=== PATIENT | female | born 1985 | race Hispanic/Latino ===

== ENCOUNTER 2017-07-11 02:23 | Emergency (ER) | payer MEDICAID, SELFPAY ==
[2017-07-11 04:13] LABS: #Lymphocytes 1.2 thou/uL (1.20-3.40); #Monocytes 0.7 thou/uL (0.11-0.59); #Neutrophils 3.6 thou/uL (1.40-6.50); %Basophils 0.2 % (0.0-1.0); %Eosinophils 0.8 % (0.0-10.0); %Lymphocytes 21.2 % (21.0-51.0); %Monocytes 12.9 % (0.0-10.0); Hematocrit 42.1 % (36.0-47.0); Red Blood Cell (RBC) Count 4.56 mill/uL (4.20-5.40); White Blood Cell (WBC) Count 5.6 thou/uL (4.8-10.8)
[2017-07-11 04:30] LABS: ALT (SGPT) 12 U/L (8-55); AST (SGOT) 19 U/L (5-34); Alkaline Phosphatase 58 U/L (40-150); Anion Gap 13 mmol/L (10-20); BUN (Urea Nitrogen) 12 mg/dL (7.0-18.7); Bilirubin, Total 0.8 mg/dL (0.2-1.2); Calc. Creatinine Clearance 0 mL/min (70-130); Calcium 9.1 mg/dL (7.8-10.44); Carbon Dioxide 24 mmol/L (22-29); Chloride 104 mmol/L (98-107); Estimated GFR-MDRD 86; Globulin 3.5 g/dL (2.4-3.5); Protein, Total 7.7 g/dL (6.0-8.3)
[2017-07-11 06:05] LABS: Bilirubin Negative (Negative); Blood, Urine Trace (Negative); Glucose, Urine (Dipstick) Negative (Negative); Ketone, Urine Trace mg/dL (Negative); Nitrite Negative (Negative); Protein, Urine (Dipstick) Trace mg/dL (Neg-Trace)
[2017-07-11 06:07] LABS: Bacteria/HPF None Seen HPF (None Seen); WBC/HPF 0-3 HPF (0-3)
[2017-07-11 06:15] LABS: Hyaline Casts/LPF 0-3 HYALINE CAST LPF (0-3 Hyaline)
--- NOTE | 2017-07-11 07:48 | RAD ---
PORTABLE CHEST 1 VIEW: DATE: 07/11/17. TIME: 3:34 a.m. HISTORY: Cough. FINDINGS: The heart size is normal. The lungs are expanded without focal areas of consolidation, pneumothorax, or pleural effusions. IMPRESSION: No radiographic evidence of acute cardiopulmonary process. POS: [facility]
--- NOTE | 2017-07-11 07:50 | CT ---
PRELIMINARY REPORT/[facility]/EMERGENCY AFTER HOURS PROCEDURE: EXAM: CT Head Without Intravenous Contrast EXAM DATE/TIME: 07/11/2017 3:43 AM CLINICAL HISTORY: 32 years old, female; Signs and symptoms; Syncope and collapse and other: Seizure; Patient HX: Nelson underwood awoke to "thud" in bathroom. Entered bathroom and found patient laying next to toilet. While moving patient back into bedroom, "seizure activity" noted. TECHNIQUE: Axial computed tomography images of the head/brain without intravenous contrast. COMPARISON: No relevant prior studies available. FINDINGS: Brain: No evidence of acute intracranial hemorrhage, extraxial fluid or midline shift. No evidence of acute large vessel infarction. Ventricles: Unremarkable. No ventriculomegaly. Bones/joints: Unremarkable. No acute fracture. Soft tissues: Unremarkable. Sinuses: Mild fluid within seen in maxillary, sphenoid and ethmoid sinuses. Mastoid air cells: Unremarkable as visualized. No mastoid effusion. IMPRESSION: 1. No evidence of acute intracranial hemorrhage, extraxial fluid or midline shift. 2. No evidence of acute large vessel infarction. 3. Mild fluid within seen in maxillary, sphenoid and ethmoid sinuses. Thank you for allowing us to participate in the care of your patient. Dictated and Authenticated by: Shayna Barlow MD 07/11/2017 4:00 AM Central Time ([place] & [place]) FINAL REPORT CT BRAIN WITHOUT CONTRAST: I agree with the preliminary report given by Dr. Shayna Barlow of [email or web address]. POS: [facility]
== END 2017-07-11 06:55 | disposition home or self-care (01) ==
LOC: ERS 02:23
DX: E86.0 Dehydration (principal); R50.9 Fever, unspecified
CPT/HCPCS: 51701; 70450; 71010; 80053; 81003; 81015; 84146; 84703; 85025; 87081; 87430; 93005; 96360; 96361; A4353

== ENCOUNTER 2018-10-21 13:58 | Outpatient (CLI) | payer OTHER ==
--- NOTE | 2018-10-21 15:47 | RAD ---
ABDOMEN ONE VIEW: 10/21/18 HISTORY: Constipation. COMPARISON: None. FINDINGS: There is marked gaseous distention of the stomach. There appears to be calcification projecting over the right upper quadrant of the abdomen which may be renal in origin. Moderate stool burden throughou t the colon. 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 IMPRESSION: 1. Moderate volume stool throughout the pelvis. 2. Possible right sided renal calculus. POS: [facility]
== END 2018-10-21 13:59 | disposition home or self-care (01) ==
LOC: BICRAD 13:58
PROVIDERS: ATTEND Internal Medicine
DX: K59.00 Constipation, unspecified (principal)
CPT/HCPCS: 74018

== ENCOUNTER 2019-06-26 13:04 | Outpatient (CLI) | payer OTHER ==
--- NOTE | 2019-06-26 13:28 | ULT ---
US Gallbladder RUQ: 06/26/2019 12:00 AM CLINICAL HISTORY: Right upper quadrant abdominal pain. STUDY: Limited right upper quadrant ultrasound of abdomen. COMPARISON: None. FINDINGS: Liver: Size: Normal. Echogenicity: Hyperechoic consistent with hepatic steatosis. Contour: Smooth. Mass: There are hyperechoic lesions scattered throughout the liver which are more hyperechoic than th e fatty liver measuring up to 2.9 cm in size. Bile ducts: No intrahepatic or extrahepatic biliary dilatation. Common bile duct measures 2 mm. Gallbladder: Normal. Pancreas: Not visualized. Right kidney: No pelvicalyceal dilatation. Right kidney measuring 9.9 cm in length. IMPRESSION: 1. Fatty liver 2. Hyperechoic lesions seen scattered throughout the liver may represent areas of more significant fa tty infiltration or hemangiomas.
== END 2019-06-26 13:05 | disposition home or self-care (01) ==
LOC: BICULT 13:04
PROVIDERS: ATTEND Internal Medicine
DX: R10.11 Right upper quadrant pain (principal); K76.0 Fatty (change of) liver, not elsewhere classified; K76.9 Liver disease, unspecified
CPT/HCPCS: 76705

== ENCOUNTER 2020-11-01 19:16 | Emergency (ER) | payer SELFPAY ==
[~2020-11-01 19:16] MED LIST: Iopamidol-370 76% 500 ML 1 ML ONE
[2020-11-01 19:39] LABS: Bilirubin Negative (Negative); Blood, Urine 1+ (Negative); Clarity Clear (Clear); Glucose, Urine (Dipstick) Normal (Negative); Ketone, Urine Negative (Negative); Leukocyte 75 Leu/uL (Negative); Nitrite Negative (Negative); Protein, Urine (Dipstick) Negative (Neg-Trace); RBC/HPF 0-3 HPF (0-3); Specific Gravity, Urine 1.004 (1.002-1.036); Squamous Epithelial 0-3 HPF (0-3); Urobilinogen Normal mg/dL (Less than 2); WBC/HPF 0-3 HPF (0-3); pH, Urine 5.5 (5.0-9.0)
[2020-11-01 19:40] LABS: Bacteria/HPF 1+ HPF (None Seen)
[2020-11-01 20:16] LABS: Pregnancy Test - Urine (BHCG) Negative (Negative); Pregu Control Background? CLEAR/WHITE (CLR/WHITE); Pregu Control Bar Appear? YES (CONTROL BAR); Specific Gravity 1.003 (1.002-1.036)
[2020-11-01] MEDS ORDERED: Morphine 4 MG/ML VIAL ONE (20:19)
[2020-11-01] MEDS ORDERED: Pantoprazole 40 MG VIAL ONE (20:19)
[2020-11-01 20:21] LABS: #Basophils 0.1 thou/uL (0.0-0.2); #Eosinphils 0.3 thou/uL (0.0-0.7); #Lymphocytes 3.8 thou/uL (1.20-3.40); #Monocytes 0.7 thou/uL (0.11-0.59); #Neutrophils 9.5 thou/uL (1.40-6.50); %Basophils 0.8 % (0.0-1.0); %Eosinophils 1.8 % (0.0-10.0); %Lymphocytes 26.6 % (21.0-51.0); %Monocytes 4.7 % (0.0-10.0); %Neutrophils 66.2 % (42.0-75.0); Hemoglobin 14.1 g/dL (12.0-16.0); Mean Corpuscular HGB CONC 34.9 g/dL (32.0-36.0); Mean Corpuscular Hemoglobin 31.9 pg (27.0-31.0); Mean Corpuscular Volume 91.4 fL (78.0-98.0); Mean Platelet Volume 7.6 fL (7.4-10.4); Platelet Count 311 thou/uL (130-400); RBC Distribution Width 11.1 % (11.5-14.5); Red Blood Cell (RBC) Count 4.41 mill/uL (4.20-5.40); White Blood Cell (WBC) Count 14.4 thou/uL (4.8-10.8)
[2020-11-01 20:49] LABS: ALT (SGPT) 13 U/L (8-55); AST (SGOT) 13 U/L (5-34); Albumin 4.6 g/dL (3.5-5.0); Alkaline Phosphatase 119 U/L (40-110); Anion Gap 16 mmol/L (10-20); BUN (Urea Nitrogen) 11 mg/dL (7.0-18.7); Bilirubin, Total 0.4 mg/dL (0.2-1.2); Calc. Creatinine Clearance 0 mL/min (70-130); Calcium 9.7 mg/dL (7.8-10.44); Carbon Dioxide 23 mmol/L (22-29); Chloride 104 mmol/L (98-107); Globulin 3.2 g/dL (2.4-3.5); Glucose 127 mg/dL (70-105); Lipase 45 U/L (8-78); Potassium 3.6 mmol/L (3.5-5.1); Protein, Total 7.8 g/dL (6.0-8.3); Sodium 139 mmol/L (136-145)
== END 2020-11-01 23:43 | disposition home or self-care (01) ==
LOC: ERS 19:16
DX: R10.13 Epigastric pain (principal); K76.9 Liver disease, unspecified
CPT/HCPCS: 74177; 76705; 80053; 81003; 81015; 81025; 83690; 84484; 85025; 93005; 96374; 96375; C9113; J2270; Q9967

== ENCOUNTER 2022-02-01 13:35 | Outpatient (CLI) | payer OTHER | END 2022-02-01 13:36 | disposition home or self-care (01) | LOC: BICULT 13:35 | PROVIDERS: ATTEND Family Medicine | DX: O09.522 Supervision of elderly multigravida, second trimester (principal); Z3A.21 21 weeks gestation of pregnancy | CPT/HCPCS: 76805 ==